=== PATIENT | female | born 1995 | race Two or more races ===

== ENCOUNTER 2019-12-07 13:24 | Emergency (ER) | payer BC ==
[~2019-12-07] VITALS: Ht 170.2 cm; Wt 102.1 kg
[2019-12-07 14:27] LABS: Urine Bacteria MOD /hpf (None Seen); Urine Blood 3+ /uL (Negative); Urine Mucus FEW (None Seen); Urine Specific Gravity 1.022 (1.001-1.035); Urine WBC 836 /hpf (0 - 5)
[2019-12-07 14:59] VITALS: BP 150/84
[2019-12-07] MEDS ORDERED: cefTRIAXone SOD 1,000 MG VL IM ONE (15:15)
== END 2019-12-07 16:07 | disposition home or self-care (01) ==
LOC: ER 13:24
DX: N39.0 Urinary tract infection, site not specified (principal)
CPT/HCPCS: 81001; 81025; 96372; 99283; J0696

== ENCOUNTER → 2020-04-02 | Outpatient (CLI) | payer OTHER | END | disposition home or self-care (01) | LOC: LAB 12:55 | PROVIDERS: ATTEND Nurse Practitioner Family | DX: Z20.828 Contact with and (suspected) exposure to other viral communicable diseases (principal) | CPT/HCPCS: C9803; U0003 ==

== ENCOUNTER → 2020-11-17 | Outpatient (CLI) | payer BC ==
[2020-11-17 13:04] LABS: Urine Bacteria FEW /hpf (None Seen); Urine Blood TRACE /uL (Negative); Urine Hyaline Cast FEW /lpf (0 - 2); Urine Mucus FEW (None Seen); Urine Specific Gravity 1.027 (1.001-1.035); Urine WBC 7 /hpf (0 - 5)
[2020-11-17 13:16] LABS: Basophils # (auto) 0 10 ^3/uL (0-0.2); Basophils % (auto) 0.4 % (0.0-2.0); Eosinophils # (auto) 0.1 10 ^3/uL (0-0.8); Eosinophils % (auto) 1.4 % (0.0-7.0); Hematocrit 41.6 % (36.0-46.0); Hemoglobin 14.7 g/dL (12.2-16.2); Lymphocytes # (auto) 2.8 10 ^3/uL (0.4-5.4); Lymphocytes % (auto) 35.4 % (10.0-50.0); Mean Corpuscular Hemoglobin 29.5 pg (28.0-32.0); Mean Corpuscular Hgb Conc. 35.2 g/dL (32.0-36.0); Mean Corpuscular Volume 83.7 fL (80.0-100.0); Monocytes # (auto) 0.4 10 ^3/uL (0-1.3); Neutrophils # (auto) 4.6 10 ^3/uL (1.6-8.6); Neutrophils % (auto) 57.8 % (37.0-80.0); Platelet Count (auto) 300 10^3/uL (140-450); Red Blood Cells 4.97 10^6/uL (4.0-5.20); Red Cell Distribution Width 13.5 % (11.8-14.3)
[2020-11-17 13:26] LABS: Calcium 9.1 mg/dL (8.5-10.1); Magnesium 2.2 mg/dL (1.6-2.6)
[2020-11-17 13:33] LABS: Albumin 3.8 g/dL (3.4-5.0); BUN/Creatinine Ratio 16.7; Bilirubin, Total 0.4 mg/dL (0.2-1.0); Total Protein 7.8 g/dL (6.4-8.2); Uric Acid 4.9 mg/dL (2.6-6.0)
== END | disposition home or self-care (01) ==
LOC: LAB 12:37
PROVIDERS: ATTEND Internal Medicine
DX: D51.9 Vitamin B12 deficiency anemia, unspecified (principal); R73.09 Other abnormal glucose; R94.6 Abnormal results of thyroid function studies; E55.9 Vitamin D deficiency, unspecified; R68.89 Other general symptoms and signs; R79.89 Other specified abnormal findings of blood chemistry; R82.991 Hypocitraturia; E78.49 Other hyperlipidemia
CPT/HCPCS: 36415; 80053; 80061; 81001; 82306; 82607; 83036; 83735; 84443; 84550; 85025; 85049; 87086

== ENCOUNTER → 2021-03-02 | Outpatient (CLI) | payer BC ==
[2021-03-02 10:07] LABS: Urine WBC None Seen /hpf (0 - 5)
[2021-03-02 10:15] LABS: Basophils # (auto) 0 10 ^3/uL (0-0.2); Basophils % (auto) 0.3 % (0.0-2.0); Eosinophils # (auto) 0.1 10 ^3/uL (0-0.8); Eosinophils % (auto) 1.1 % (0.0-7.0); Hematocrit 44.7 % (36.0-46.0); Hemoglobin 14.9 g/dL (12.2-16.2); Lymphocytes # (auto) 3.5 10 ^3/uL (0.4-5.4); Lymphocytes % (auto) 39.3 % (10.0-50.0); Mean Corpuscular Hemoglobin 28.6 pg (28.0-32.0); Mean Corpuscular Hgb Conc. 33.4 g/dL (32.0-36.0); Mean Corpuscular Volume 85.6 fL (80.0-100.0); Monocytes # (auto) 0.4 10 ^3/uL (0-1.3); Monocytes % (auto) 4.4 % (0.0-12.0); Neutrophils # (auto) 4.9 10 ^3/uL (1.6-8.6); Neutrophils % (auto) 54.9 % (37.0-80.0); Nucleated Red Blood Cells % 0.1 %; Red Blood Cells 5.22 10^6/uL (4.0-5.20); Red Cell Distribution Width 13.1 % (11.8-14.3); White Blood Cell 8.8 10^3/uL (4.4-10.8)
[2021-03-02 10:47] LABS: Albumin 3.5 g/dL (3.4-5.0); Potassium 3.9 mmol/L (3.5-5.1)
[2021-03-02 10:52] LABS: BUN/Creatinine Ratio 17.1; Bilirubin, Total 0.5 mg/dL (0.2-1.0); Total Protein 7.6 g/dL (6.4-8.2)
[2021-03-02 11:08] LABS: Urine Bacteria FEW /hpf (None Seen); Urine Blood Negative /uL (Negative); Urine Specific Gravity 1.023 (1.001-1.035)
== END | disposition home or self-care (01) ==
LOC: LAB 09:44
PROVIDERS: ATTEND Internal Medicine
DX: E79.0 Hyperuricemia without signs of inflammatory arthritis and tophaceous disease (principal); D51.9 Vitamin B12 deficiency anemia, unspecified; R73.09 Other abnormal glucose; R94.6 Abnormal results of thyroid function studies; E55.9 Vitamin D deficiency, unspecified; R68.89 Other general symptoms and signs; R82.998 Other abnormal findings in urine; E78.49 Other hyperlipidemia
CPT/HCPCS: 36415; 80053; 80061; 81001; 83735; 85025

== ENCOUNTER → 2022-03-21 | Outpatient (CLI) | payer BC ==
[2022-03-21 07:57] LABS: Basophils # (auto) 0.1 10 ^3/uL (0-0.2); Basophils % (auto) 0.7 % (0.0-2.0); Eosinophils # (auto) 0.2 10 ^3/uL (0-0.8); Eosinophils % (auto) 1.5 % (0.0-7.0); Hematocrit 41.9 % (36.0-46.0); Hemoglobin 14.4 g/dL (12.2-16.2); Lymphocytes # (auto) 5.7 10 ^3/uL (0.4-5.4); Lymphocytes % (auto) 50.9 % (10.0-50.0); Mean Corpuscular Hemoglobin 28.4 pg (28.0-32.0); Mean Corpuscular Hgb Conc. 34.3 g/dL (32.0-36.0); Mean Corpuscular Volume 82.6 fL (80.0-100.0); Monocytes # (auto) 0.6 10 ^3/uL (0-1.3); Monocytes % (auto) 5.4 % (0.0-12.0); Neutrophils # (auto) 4.7 10 ^3/uL (1.6-8.6); Neutrophils % (auto) 41.5 % (37.0-80.0); Red Blood Cells 5.08 10^6/uL (4.0-5.20); White Blood Cell 11.3 10^3/uL (4.4-10.8)
[2022-03-21 08:06] LABS: Urine Bacteria NONE SEEN /hpf (None Seen); Urine Blood Negative /uL (Negative); Urine Specific Gravity 1.019 (1.001-1.035); Urine WBC 1 /hpf (0 - 5)
[2022-03-21 08:31] LABS: Albumin 3.9 g/dL (3.4-5.0); BUN/Creatinine Ratio 14.9; Bilirubin, Total 0.5 mg/dL (0.2-1.0); Calcium 9.1 mg/dL (8.5-10.1); Potassium 3.6 mmol/L (3.5-5.1); Total Protein 8.2 g/dL (6.4-8.2); Uric Acid 4.5 mg/dL (2.6-6.0)
[2022-03-21 21:07] LABS: Folate (Folic Acid) 21.18 ng/mL (5.38-24)
== END | disposition home or self-care (01) ==
LOC: LAB 07:36
PROVIDERS: ATTEND Internal Medicine
DX: R79.89 Other specified abnormal findings of blood chemistry (principal); R68.89 Other general symptoms and signs; E61.2 Magnesium deficiency; E78.9 Disorder of lipoprotein metabolism, unspecified; R82.90 Unspecified abnormal findings in urine; D51.3 Other dietary vitamin B12 deficiency anemia; R73.09 Other abnormal glucose; R94.6 Abnormal results of thyroid function studies; E55.9 Vitamin D deficiency, unspecified
CPT/HCPCS: 36415; 80053; 80061; 81001; 82306; 82607; 82746; 83036; 83735; 84443; 84550; 85025; 87086

== ENCOUNTER → 2022-07-07 | Outpatient (CLI) | payer BC ==
[2022-07-07 10:24] LABS: Basophils # (auto) 0.1 10 ^3/uL (0-0.2); Basophils % (auto) 0.7 % (0.0-2.0); Eosinophils # (auto) 0.1 10 ^3/uL (0-0.8); Eosinophils % (auto) 1.6 % (0.0-7.0); Hematocrit 42.3 % (36.0-46.0); Hemoglobin 14.7 g/dL (12.2-16.2); Lymphocytes # (auto) 3.7 10 ^3/uL (0.4-5.4); Lymphocytes % (auto) 46.4 % (10.0-50.0); Mean Corpuscular Hemoglobin 29.6 pg (28.0-32.0); Mean Corpuscular Hgb Conc. 34.8 g/dL (32.0-36.0); Mean Corpuscular Volume 85.1 fL (80.0-100.0); Monocytes # (auto) 0.4 10 ^3/uL (0-1.3); Neutrophils # (auto) 3.7 10 ^3/uL (1.6-8.6); Neutrophils % (auto) 46.3 % (37.0-80.0); Nucleated Red Blood Cells % 0.2 %; Red Blood Cells 4.97 10^6/uL (4.0-5.20); Red Cell Distribution Width 13.5 % (11.8-14.3); White Blood Cell 8.1 10^3/uL (4.4-10.8)
[2022-07-07 10:47] LABS: Urine Blood Negative /uL (Negative); Urine Specific Gravity 1.022 (1.001-1.035)
[2022-07-07 11:03] LABS: Albumin 3.8 g/dL (3.4-5.0); BUN/Creatinine Ratio 23.1; Bilirubin, Total 0.3 mg/dL (0.2-1.0); Calcium 9.2 mg/dL (8.5-10.1); Potassium 3.9 mmol/L (3.5-5.1); Total Protein 7.6 g/dL (6.4-8.2); Uric Acid 5.6 mg/dL (2.6-6.0)
[2022-07-08 05:07] LABS: RPR Non Reactive (Non Reactive)
== END | disposition home or self-care (01) ==
LOC: LAB 09:39
PROVIDERS: ATTEND Internal Medicine
DX: E61.2 Magnesium deficiency (principal); E55.9 Vitamin D deficiency, unspecified; E87.4 Mixed disorder of acid-base balance; E79.0 Hyperuricemia without signs of inflammatory arthritis and tophaceous disease; R94.6 Abnormal results of thyroid function studies; R82.998 Other abnormal findings in urine; R82.79 Other abnormal findings on microbiological examination of urine; D51.9 Vitamin B12 deficiency anemia, unspecified; R82.90 Unspecified abnormal findings in urine; R68.89 Other general symptoms and signs; R73.09 Other abnormal glucose; E78.41 Elevated Lipoprotein(a)
CPT/HCPCS: 36415; 80053; 80061; 81003; 82306; 82607; 83036; 84443; 84550; 85025; 86592; 86695; 86696; 87086

== ENCOUNTER → 2023-05-18 | Outpatient (CLI) | payer BC ==
[2023-05-18 12:03] LABS: Basophils # (auto) 0.1 10 ^3/uL (0-0.2); Basophils % (auto) 0.6 % (0.0-2.0); Eosinophils # (auto) 0.1 10 ^3/uL (0-0.8); Eosinophils % (auto) 0.7 % (0.0-7.0); Hematocrit 45.9 % (36.0-46.0); Hemoglobin 15.3 g/dL (12.2-16.2); Lymphocytes # (auto) 2.3 10 ^3/uL (0.4-5.4); Lymphocytes % (auto) 15.5 % (10.0-50.0); Mean Corpuscular Hemoglobin 28.4 pg (28.0-32.0); Mean Corpuscular Hgb Conc. 33.3 g/dL (32.0-36.0); Mean Corpuscular Volume 85.2 fL (80.0-100.0); Monocytes # (auto) 0.9 10 ^3/uL (0-1.3); Neutrophils # (auto) 11.2 10 ^3/uL (1.6-8.6); Neutrophils % (auto) 77.2 % (37.0-80.0); Nucleated Red Blood Cells % 0.1 %; Red Blood Cells 5.38 10^6/uL (4.0-5.20); Red Cell Distribution Width 13.2 % (11.8-14.3); White Blood Cell 14.6 10^3/uL (4.4-10.8)
[2023-05-18 12:13] LABS: Urine Bacteria NONE SEEN /hpf (None Seen); Urine Blood Negative /uL (Negative); Urine Clarity Clear (Clear); Urine Color Yellow (Yellow); Urine Protein, UAD Negative (Negative); Urine Urobilinogen Normal (Negative); Urine WBC 2 /hpf (0 - 5); Urine pH 5.5 (5.0-8.0)
[2023-05-18 12:22] LABS: Folate (Folic Acid) 20.1 ng/mL (>5.38)
[2023-05-18 12:24] LABS: Alanine Aminotransferase 22 U/L (7-40); Albumin 4.7 g/dL (3.2-4.8); Alkaline Phosphatase 78 U/L (46-116); Anion Gap 8 (5-15); Aspartate Aminotransferase 15 U/L (13-40); BUN/Creatinine Ratio 12.3 (10.0-20.0); Blood Urea Nitrogen 10 mg/dL (9-23); Calcium 9.8 mg/dL (8.5-10.1); Carbon Dioxide 26 mmol/L (20-30); Chloride 105 mmol/L (98-107); Cholesterol 180 mg/dL (< 200); Glucose 97 mg/dL (74-106); HDL Cholesterol 43 mg/dL (40-59); LDL Cholesterol 129 mg/dL (< 100); Potassium 4.1 mmol/L (3.5-5.1); Sodium 139 mmol/L (136-145); Triglycerides 128 mg/dL (< 150)
[2023-05-18 12:25] LABS: Bilirubin, Total 0.7 mg/dL (0.2-1.0); Total Protein 7.6 g/dL (5.7-8.2)
[2023-05-18 12:45] LABS: Uric Acid 5.1 mg/dL (3.1-7.8)
== END | disposition home or self-care (01) ==
LOC: LAB 11:21
PROVIDERS: ATTEND Internal Medicine
DX: R79.89 Other specified abnormal findings of blood chemistry (principal); R68.89 Other general symptoms and signs; R73.09 Other abnormal glucose; E78.49 Other hyperlipidemia; E61.2 Magnesium deficiency; R94.6 Abnormal results of thyroid function studies; E55.9 Vitamin D deficiency, unspecified; R82.90 Unspecified abnormal findings in urine; R82.79 Other abnormal findings on microbiological examination of urine; D51.9 Vitamin B12 deficiency anemia, unspecified
CPT/HCPCS: 36415; 80053; 80061; 81001; 82306; 82607; 82746; 83036; 84443; 84550; 85025; 87086

== ENCOUNTER → 2023-12-11 | Outpatient (CLI) | payer BC ==
[~2023-12-11] MED LIST: NITR-87 PO
[2023-12-11 08:49] LABS: Urine Bacteria FEW /hpf (None Seen); Urine Blood Negative /uL (Negative); Urine Clarity Clear (Clear); Urine Color Yellow (Yellow); Urine Protein, UAD Negative (Negative); Urine Specific Gravity 1.011 (1.001-1.035); Urine Urobilinogen Normal (Negative); Urine WBC 8 /hpf (0 - 5)
[2023-12-11 08:56] LABS: Hematocrit 35.3 % (36.0-46.0); Mean Corpuscular Hgb Conc. 34.1 g/dL (32.0-36.0); Red Blood Cells 4.16 10^6/uL (4.0-5.20); Red Cell Distribution Width 13.1 % (11.8-14.3); White Blood Cell 11.4 10^3/uL (4.4-10.8)
[2023-12-11 08:59] LABS: Band Neutrophils % (manual) 0; Basophils % (manual) 0 (0.0-2.0); Blast Cells 0; Metamyelocytes % 0; Myelocytes % 0; Promyelocytes % 0; Reactive Lymphocytes 0
[2023-12-11 09:15] LABS: Alanine Aminotransferase 18 U/L (7-40); Albumin 4.1 g/dL (3.2-4.8); Alkaline Phosphatase 74 U/L (46-116); Aspartate Aminotransferase 12 U/L (13-40); BUN/Creatinine Ratio 15.5 (10.0-20.0); Blood Urea Nitrogen 9 mg/dL (9-23); Chloride 101 mmol/L (98-107); Cholesterol 142 mg/dL (< 200); Glucose 80 mg/dL (74-106); HDL Cholesterol 22 mg/dL (40-59); LDL Cholesterol 107 mg/dL (< 100); Potassium 2.9 mmol/L (3.5-5.1); Sodium 137 mmol/L (136-145); Triglycerides 122 mg/dL (< 150)
[2023-12-11 09:16] LABS: Anion Gap 7 (5-15); Bilirubin, Total 0.5 mg/dL (0.2-1.0); Carbon Dioxide 29 mmol/L (20-30); Folate (Folic Acid) 18.9 ng/mL (>5.38)
[2023-12-11 09:17] LABS: Calcium 9.5 mg/dL (8.7-10.4)
[2023-12-11 09:33] LABS: Eosinophils % (manual) 1 (0-7); Lymphocytes % (manual) 29 (10.0-50.0); Monocytes % (manual) 4 (0-12); Platelet Estimate Adequate
[2023-12-11 09:34] LABS: RBC Morphology Normal
[2023-12-11 09:56] LABS: Uric Acid 3.7 mg/dL (3.1-7.8)
== END | disposition home or self-care (01) ==
LOC: LAB 07:46
PROVIDERS: ATTEND Internal Medicine
DX: E11.65 Type 2 diabetes mellitus with hyperglycemia (principal); E66.9 Obesity, unspecified; N39.0 Urinary tract infection, site not specified; Z68.34 Body mass index [BMI] 34.0-34.9, adult
CPT/HCPCS: 36415; 80053; 80061; 81001; 82306; 82607; 82746; 83036; 84443; 84550; 85007; 85027; 87086

== ENCOUNTER → 2024-02-18 | Outpatient (CLI) | payer BC ==
[2024-02-18 13:20] LABS: Alanine Aminotransferase 15 U/L (7-40); Albumin 4.3 g/dL (3.2-4.8); Alkaline Phosphatase 71 U/L (46-116); Anion Gap 5 (5-15); Aspartate Aminotransferase 12 U/L (13-40); BUN/Creatinine Ratio 16.5 (10.0-20.0); Blood Urea Nitrogen 13 mg/dL (9-23); Calcium 9.6 mg/dL (8.7-10.4); Carbon Dioxide 29 mmol/L (20-31); Chloride 106 mmol/L (98-107); Glucose 97 mg/dL (74-106); Potassium 3.9 mmol/L (3.5-5.1); Sodium 140 mmol/L (136-145)
[2024-02-18 13:21] LABS: Bilirubin, Total 0.4 mg/dL (0.2-1.0); Total Protein 7.2 g/dL (5.7-8.2)
== END | disposition home or self-care (01) ==
LOC: LAB 12:42
PROVIDERS: ATTEND Nurse Practitioner Family
DX: I10 Essential (primary) hypertension (principal); E11.65 Type 2 diabetes mellitus with hyperglycemia; E78.5 Hyperlipidemia, unspecified; E78.6 Lipoprotein deficiency
CPT/HCPCS: 36415; 80053